=== PATIENT | male | born 1960 | race Caucasian/White ===

== ENCOUNTER 2019-06-21 10:34 | Emergency (ER) | payer MEDICARE, MEDICAID ==
[~2019-06-21] VITALS: Ht 175.3 cm; Wt 106.8 kg
[~2019-06-21 10:34] MED LIST: CLOZ100 PO; DIVA500T69 PO; FLUV50 PO; LEVO50 PO; MEMA5 PO; MULT-29 GT
[2019-06-21 11:48] LABS: BASOPHILS % (AUTO) 0.5 % (0.0-2.0); EOSINOPHILS % (AUTO) 1.6 % (1.0-6.0); HEMATOCRIT 39.1 % (41-53); HEMOGLOBIN 13.2 g/dL (13.5-17.5); LYMPHOCYTES # (AUTO) 2.6 K/uL (1.0-4.8); LYMPHOCYTES % (AUTO) 40.1 % (22.0-44.0); MEAN CORPUSCULAR HEMOGLOBIN 32.2 pg (26.0-34.0); MEAN CORPUSCULAR HGB CONC 33.8 G/dL (31.0-37.0); MEAN CORPUSCULAR VOLUME 95 fL (80-100); MONOCYTES # (AUTO) 0.7 K/uL (0.1-1.0); MONOCYTES % (AUTO) 10.8 % (2.0-9.0); PLATELET COUNT (AUTO) 120 K/uL (150-450)
[2019-06-21 12:44] LABS: ALANINE AMINOTRANSFERASE 13 U/L (12-78); ALBUMIN 3.2 g/dL (3.4-5.0); ALKALINE PHOSPHATASE 49 U/L (46-116); ASPARTATE AMINOTRANSFERASE 12 U/L (15-37); BILIRUBIN,TOTAL 0.2 mg/dL (0.1-1.0); CALCIUM, TOTAL 8.9 mg/dL (8.8-10.5); CHLORIDE 108 mmol/L (98-107); CREATINE KINASE, TOTAL ONLY 80 U/L (39-308); CREATININE 1.12 mg/dL (0.60-1.30); GLOMERULAR FILTR. RATE CALC > 60 mL/min (>60); GLUCOSE,RANDOM 84 mg/dL (70-110); POTASSIUM 3.9 mmol/L (3.5-5.1); SODIUM SERUM 143 mmol/L (136-145); TOTAL PROTEIN, SERUM 6.3 g/dL (6.4-8.2); UREA NITROGEN, BLOOD 18 mg/dL (7-18); VALPROIC ACID 56 mcg/mL (50-100)
[2019-06-21 12:47] LABS: ANION GAP 5 mmol/L (8-16); CARBON DIOXIDE 30 mmol/L (22-29)
[2019-06-21 13:17] VITALS: BP 121/66
[2019-06-21] MEDS ORDERED: LORA-999 PO (13:22)
[2019-06-21] MEDS ORDERED: CLOZ100 PO (13:22)
[2019-06-21] MEDS ORDERED: DESM0.1T23 PO (13:22)
[2019-06-21] MEDS ORDERED: PALI6 PO (13:28)
[2019-06-21] MEDS ORDERED: PARO10TA89 PO (13:28)
[2019-06-21] MEDS ORDERED: PROP10TA73 PO (13:28)
[2019-06-21] MEDS ORDERED: DIVA-78 PO (13:28)
== END 2019-06-21 14:58 | disposition home or self-care (01) ==
LOC: EMS 10:36
DX: R53.1 Weakness (principal); F41.9 Anxiety disorder, unspecified; F31.9 Bipolar disorder, unspecified; F20.9 Schizophrenia, unspecified; F17.210 Nicotine dependence, cigarettes, uncomplicated; F12.90 Cannabis use, unspecified, uncomplicated; W19.XXXA Unspecified fall, initial encounter; Y93.89 Activity, other specified; Y92.89 Other specified places as the place of occurrence of the external cause; Y99.8 Other external cause status
CPT/HCPCS: 36415; 70450; 71045; 80053; 80164; 82140; 82550; 85025; 93005; 99285; G0480